=== PATIENT | male | born 1975 | race Two or more races ===

== ENCOUNTER 2018-04-09 23:08 | Emergency (ER) | payer MEDICAID, OTHER ==
[~2018-04-09] VITALS: Ht 182.9 cm; Wt 81.6 kg
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
--- NOTE | 2018-04-09 23:29 | NUR ---
JOSHUA RELEASED PT FROM CUSTODY. ER MD ORDERED TO PLACE PT ON RESTRAINTS. RESTRAINTS APPLIED PER ER MD ORDER.
--- NOTE | 2018-04-10 00:12 | NUR ---
BLOOD DRAWN BY DIETARY MANAGER.
[2018-04-10] MEDS ORDERED: LORAZEPAM 1 MG TABLET ONE (00:13)
--- NOTE | 2018-04-10 00:15 | NUR ---
PT CALM AND COOPERATIVE, DENIES SI/HI. PT ANSWERING ALL QUESTIONS. PER [facility] PUBLIC INFORMATION OFFICER OK NO RESTRAINTS.
[2018-04-10 00:21] LABS: BASOPHILS % (AUTO) 0.4 % (0.0-2.0); EOSINOPHILS % (AUTO) 5.7 % (0.0-6.0); HEMATOCRIT 45 % (39-51); LYMPHOCYTES # (AUTO) 2.4 /CMM (0.8-4.8); LYMPHOCYTES % (AUTO) 32.8 % (20.0-44.0); MEAN CORPUSCULAR HGB CONC 33 g/dl (31.0-36.0); MEAN CORPUSCULAR VOLUME 88 fL (80-96); MONOCYTES # (AUTO) 0.7 /CMM (0.1-1.30); MONOCYTES % (AUTO) 9.5 % (2.0-12.0); NEUTROPHILS # (AUTO) 3.8 /CMM (1.8-8.9); NEUTROPHILS % (AUTO) 51.6 % (43.0-81.0); PLATELET COUNT (AUTO) 320 /CMM (150-450); RED BLOOD CELL COUNT(AUTO) 5.09 MIL/uL (4.5-6.0); WHITE BLOOD COUNT (AUTO) 7.4 K/uL (4.3-11.0)
[2018-04-10 00:23] LABS: APPEARANCE,URINE CLEAR (CLEAR); BILIRUBIN,URINE NEGATIVE (NEGATIVE); BLOOD, URINE TRACE Ery/uL (NEGATIVE); COLOR,URINE YELLOW (YELLOW); KETONES,URINE TRACE (NEGATIVE); LEUKOCYTE ESTERASE ,URINE NEGATIVE (NEGATIVE); NITRITE, URINE NEGATIVE (NEGATIVE); PROTEIN,URINE NEGATIVE (NEGATIVE); UGLUCOSE NEGATIVE (NEGATIVE); UROBILINOGEN,URINE 0.2 EU/dL (0.2)
[2018-04-10 00:29] LABS: CALCIUM, SERUM 8.9 mg/dL (8.5-10.1); CARBON DIOXIDE 25 mmol/L (21-32); CHLORIDE 109 mmol/L (98-107); CREATININE 0.7 mg/dL (0.6-1.3); GLUCOSE 67 mg/dL (74-106); POTASSIUM 3.9 mmol/L (3.5-5.1); SODIUM SERUM 142 mmol/L (136-145); UREA NITROGEN, BLOOD 14 mg/dL (7-18)
[2018-04-10] MEDS ORDERED: LORAZEPAM 1 MG TABLET PO ONE (00:30)
[2018-04-10 00:43] LABS: ALANINE AMINOTRANSFERASE 16 U/L (12-78); ALBUMIN 3.9 g/dL (3.4-5.0); ALCOHOL, BLOOD < 3 mg/dL (0-0); ALKALINE PHOSPHATASE 78 U/L (46-116); ASPARTATE AMINOTRANSFERASE 12 U/L (15-37); BACTERIA,URINE None seen /HPF (None Seen); BILIRUBIN,DIRECT 0.1 mg/dL (0.0-0.2); BILIRUBIN,TOTAL 0.3 mg/dL (0.2-1.0); SQUAMOUS EPITHELIAL CELL,UR Few /HPF (None Seen); TOTAL PROTEIN, SERUM 8.1 g/dL (6.4-8.2); WBC,URINE 0-2 /HPF (0-3)
[2018-04-10 00:44] LABS: ACETAMINOPHEN < 0 ug/ml (10-30); SALICYLATE 0.5 mg/dL (2.8-20.0)
--- NOTE | 2018-04-10 01:38 | NUR ---
SRI SHANEW AT BEDSIDE TO EVAL PT. PT REMAINS CALM AND COOPERATIVE AT THIS TIME.
--- NOTE | 2018-04-10 03:29 | NUR ---
PT ASLEEP, NO ACUTE DISTRESS NOTED, RESP EVEN AND UNLABORED. CALL LIGHT WITHIN REACH. WILL CONTINUE TO MONITOR PT CLOSELY.
--- NOTE | 2018-04-10 05:53 | NUR ---
Patient discharged to home in stable condition. Written and verbal after care instructions given. Patient verbalizes understanding of instruction. ambulatory with a steady gait noted. pt denies si or hi at this time.
[2018-04-10 05:56] VITALS: BP 139/76
== END 2018-04-10 05:56 | disposition home or self-care (01) ==
LOC: ER 23:12
DX: F15.10 Other stimulant abuse, uncomplicated (principal); R45.850 Homicidal ideations; F41.9 Anxiety disorder, unspecified; F32.9 Major depressive disorder, single episode, unspecified
CPT/HCPCS: 36415; 80048-TC; 80076-TC; 80305; 81000-TC; 85025-TC; A4606; G0480; Z7610